=== PATIENT | female | born 2000 | race Caucasian/White ===

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

== ENCOUNTER 2018-05-19 11:57 | Emergency (ER) | payer OTHER ==
[2018-05-19 13:41] VITALS: BP 126/65
--- NOTE | 2018-05-19 13:42 | UC ---
Lower Extremity/Ankle HPI - HPI Summary HPI Summary: Right foot pain after a fall last night. She is unable to walk now. There is pain with walking. Nothing makes it better. - History of Current Complaint Stated Complaint: R FOOT INJ Time Seen by Provider: 05/19/18 13:33 Hx Obtained From: Patient Hx Last Menstrual Period: 1 month ago - due in a couple days Onset/Duration: Sudden Onset, Lasting Hours Severity Initially: Moderate Severity Currently: Moderate Aggravating Factor(s): Standing, Ambulation Alleviating Factor(s): Rest, Elevation Able to Bear Weight: No - Allergies/Home Medications Allergies/Adverse Reactions: Allergies Allergy/AdvReac Type Severity Reaction Status Date / Time No Known Allergies Allergy Verified 11/25/16 15:01 Home Medications: Home Medications Ibuprofen 800 mg PO Q8H 05/19/18 [History Confirmed 05/19/18] PMH/Surg Hx/FS Hx/Imm Hx Previously Healthy: No - depression - Surgical History Surgical History: None - Family History Known Family History: Positive: Hypertension - Social History Occupation: Student Alcohol Use: Occasionally Substance Use Type: None Smoking Status (MU): Never Smoked Tobacco Review of Systems Musculoskeletal: Arthralgia All Other Systems Reviewed And Are Negative: Yes Physical Exam Triage Information Reviewed: Yes Appearance: Well-Appearing Vital Signs Reviewed: Yes Eyes: Positive: Conjunctiva Clear ENT: Positive: Normal ENT inspection Neck: Negative: Nuchal Rigidity Respiratory: Positive: No accessory muscle use. Negative: Respiratory distress Cardiovascular: Positive: Brisk Capillary Refill Abdomen Description: Negative: Distended Musculoskeletal: Positive: Other: - Right lateral foot tenderness. There is no ankle tenderness or effusion. No proximal fibula tendernes. Neurological: Positive: Alert, Muscle Tone Normal. Negative: Fatigued Psychological: Positive: Age Appropriate Behavior Skin: Negative: rashes Diagnostics - Radiology No standard instances Xray Interpretation: Positive (See Comments) - heard fracture. Possible old mid foot fracture. Radiology Interpretation Completed By: ED Physician, Radiologist Lower Extremity Course/Dx - Differential Dx/Diagnosis Provider Diagnoses: right heard fracture. Discharge - Sign-Out/Discharge Documenting (check all that apply): Patient Departure All imaging exams completed and their final reports reviewed: Yes - Discharge Plan Condition: Good Disposition: HOME Prescriptions: Naproxen [Naproxen 500 mg tab] 500 mg PO BID PRN #20 tablet PRN Reason: Pain Patient Education Materials: Foot Fracture in Adults (ED) Forms: *Physical Education Release Referrals: Cj Rudolph MD [Medical Doctor] - No Primary Care Phys,NOPCP [Primary Care Provider] - Additional Instructions: Crutches and walking boot at all times until cleared by orthopedics. - Billing Disposition and Condition Condition: GOOD Disposition: Home
--- NOTE | 2018-05-19 14:02 | RAD ---
HISTORY: traumatic right foot pain COMPARISONS: None VIEWS: 3 , Frontal, lateral, and oblique views of the right foot FINDINGS: BONE DENSITY: Normal. BONES: There is a transverse oblique nonspecific fracture of the base of the fifth metatarsal with articular extension. JOINTS: There is no arthropathy. ALIGNMENT: There is no dislocation. SOFT TISSUES: Unremarkable. OTHER FINDINGS: None. IMPRESSION: NONDISPLACED FRACTURE OF THE BASE OF THE FIFTH METATARSAL.
== END 2018-05-19 14:33 | disposition home or self-care (01) ==
LOC: UCCORT 11:57
DX: S92.354A Nondisplaced fracture of fifth metatarsal bone, right foot, initial encounter for closed fracture (principal); W19.XXXA Unspecified fall, initial encounter; Y93.9 Activity, unspecified; Y92.9 Unspecified place or not applicable
CPT/HCPCS: 99213; G0463

== ENCOUNTER 2018-05-21 16:57 | Emergency (ER) | payer OTHER ==
[2018-05-21 19:32] VITALS: BP 136/69
--- NOTE | 2018-05-21 19:41 | UC ---
Throat Pain/Nasal Edmund HPI - HPI Summary HPI Summary: 18 female presents to the urgent care c/o tongue is sore w/ white spots in both sides of tongue for the past week. Pt reports pain has worse. Now is 03/29. Pt has mild nasal congestion w/ clear nasal discharge. Pt denies fever, SOB, chest pain, abdominal pain, N/V/D. Pt is UTD w/ all vaccines for her age. - History of Current Complaint Chief Complaint: UCGeneralIllness Stated Complaint: WHITE BUMPS ON TONGUE Time Seen by Provider: 05/21/18 19:39 Hx Obtained From: Patient Hx Last Menstrual Period: 04/28/18 Onset/Duration: Gradual Onset, Lasting Weeks - 1 week Severity: Mild Pain Intensity: 8 Pain Scale Used: 0-10 Numeric Cough: None Associated Signs & Symptoms: Positive: Dysphagia, Nasal Discharge - clear - Epiglottits Risk Factors Epiglottis Risk Factors: Negative - Allergies/Home Medications Allergies/Adverse Reactions: Allergies Allergy/AdvReac Type Severity Reaction Status Date / Time No Known Allergies Allergy Verified 05/21/18 19:25 Home Medications: Home Medications Sertraline* [Zoloft*] 100 mg PO DAILY 05/21/18 [History Confirmed 05/21/18] PMH/Surg Hx/FS Hx/Imm Hx Previously Healthy: Yes Psychological History: Anxiety, Depression - Surgical History Surgical History: None - Family History Known Family History: Positive: Hypertension - Social History Occupation: Student Lives: With Family Alcohol Use: Occasionally Substance Use Type: None Smoking Status (MU): Never Smoked Tobacco - Immunization History Vaccination Up to Date: Yes Review of Systems Constitutional: Negative Skin: Negative Eyes: Negative ENT: Sore Throat - mild, Nasal Discharge - clear, Other - white spots in the tongue w/ pain Respiratory: Negative Cardiovascular: Negative Gastrointestinal: Negative Genitourinary: Negative Motor: Negative Neurovascular: Negative Musculoskeletal: Negative Neurological: Negative Psychological: Negative Is Patient Immunocompromised?: No All Other Systems Reviewed And Are Negative: Yes Physical Exam - Summary Physical Exam Summary: VITAL SIGNS: Reviewed. GENERAL: Patient is a well developed and nourished female adolescent who is sitting comfortable in the examining table. Patient is not in any acute respiratory distress. HEAD AND FACE: No signs of trauma. No ecchymosis, hematomas or skull depressions. No sinus tenderness. EYES: PERRLA, EOMI x 2, No injected conjunctiva, no nystagmus. No photophobia. EARS: Hearing grossly intact. Ear canals and tympanic membranes are within normal limits. MOUTH: pharynx with no erythema, or exudates, no palatal petechiae. Mild B/L tonsillar enlargement with no exudate. Uvula in midline. tongue w/ creamy white discrete plaques adhere to the tongue mucosa, also posterior pharynx w/ similar white plaques. NECK: Supple, trachea is midline, Positive anterior cervical lymphadenopathy, no JVD, no carotid bruit, no c-spine tenderness, neck with full ROM. No meningeal signs, no Kernig's or brudzinskis signs. CHEST: Symmetric, no tenderness at palpation LUNGS: Clear to auscultation bilaterally. No wheezing or crackles. CVS: Regular rate and rhythm, S1 and S2 present, no murmurs or gallops appreciated. ABDOMEN: Soft, non-tender. No signs of distention. No rebound no guarding, and no masses palpated. Bowel sounds are normal. EXTREMITIES: FROM in all major joints, no edema, no cyanosis or clubbing. NEURO: Alert and oriented x 3. No acute neurological deficits. Speech is normal and follows commands. SKIN: Dry and warm Triage Information Reviewed: Yes Vital Signs: Initial Vital Signs Temp 96.6 F 05/21/18 19:28 Pulse 61 05/21/18 19:28 Resp 16 05/21/18 19:28 BP 136/69 05/21/18 19:28 Pulse Ox 100 05/21/18 19:28 Throat Pain/Nasal Course/Dx - Course Course Of Treatment: 18 female presents to the urgent care c/o tongue is sore w / white spots in both sides of tongue for the past week. Pt reports pain has worse. Now is 8/10. Pt has mild nasal congestion w/ clear nasal discharge. Pt denies fever, SOB, chest pain, abdominal pain, N/V/D. Pt is UTD w/ all vaccines for her age.Hx obtained.Pt w/ oral candidiasis on examination. Pt Rx Nystatin PO and Chlorhexidine Mouthwash to alleviate symptoms.First dose given at the clinic tonigh. Pt advised to f/u w/ PCP if not improvement of symptoms. D/C instructions explained. Pt understood and agreed w/ plan of care. - Differential Dx/Diagnosis Differential Diagnosis/HQI/PQRI: Influenza, Laryngitis, Sinusitis, URI, Other - oral candidiasis Provider Diagnoses: 1- Oral candidiasis Discharge - Sign-Out/Discharge Documenting (check all that apply): Patient Departure - D/C home All imaging exams completed and their final reports reviewed: No Studies - Discharge Plan Condition: Stable Disposition: HOME Prescriptions: Chlorhexidine MOUTHWASH 0.12%* [Peridex Mouth Wash 0.12%*] 15 ml MT BID #1 btl Nystatin SUSPENSION ORAL SYR* 100,000 units PO QID #1 bottle Patient Education Materials: Oral Candidiasis (ED) Forms: *School Release Referrals: [facility] [Outside] - 3 Days Additional Instructions: 1-Please take Nystatin PO as directed to alleviate symptoms. Increase fluid intake, eat well, rest and avoid strenuous exercise 2- Please take Chlorhexidine Oropharyngeal as directed to alleviate pain. 3-If symptoms do not improve or worsen please return to the urgent care or f/u with your PCP in 3 days for further evaluation and treatment. - Billing Disposition and Condition Condition: STABLE Disposition: Home
[2018-05-21] MEDS ORDERED: Nystatin SUSPENSION* 100000 UNITS/ML 5 ML UDC PO ONE (19:52)
== END 2018-05-21 20:14 | disposition home or self-care (01) ==
LOC: UCCORT 16:57
DX: B37.0 Candidal stomatitis (principal)
CPT/HCPCS: 99212; A9270-GY; G0463